=== PATIENT | female | born 1980 ===

== ENCOUNTER 2022-01-29 10:15 | Inpatient (IN) | payer OTHER ==
[~2022-01-29] VITALS: Ht 170.2 cm; Wt 66.7 kg
[2022-01-29] MEDS ORDERED: PROGESTERONE100 MG (12:57)
[2022-02-04] MEDS ORDERED: TANDEM PLUS CA1 EACH PO (07:32)
[2022-02-04] MEDS ORDERED: IBU600 MG PO (07:32)
[2022-02-04] MEDS ORDERED: OXYC1TAB9 PO (07:32)
[2022-02-04] MEDS ORDERED: NEURONTIN300 MG PO (07:32)
[2022-02-04] MEDS ORDERED: PROTONIX40 MG PO (07:34)
== END 2022-02-04 09:52 | disposition home or self-care (01) | DRG 742 ==
LOC: O/R 02-02 07:33 → OB/GYN 02-02 10:15
PROVIDERS: ADMIT Obstetrics & Gynecology Gynecology; ATTEND Obstetrics & Gynecology Gynecology
PROC: 0UT70ZZ Resection of Bilateral Fallopian Tubes, Open Approach (ICD-10-PCS; 2022-02-02)
PROC: 0UT20ZZ Resection of Bilateral Ovaries, Open Approach (ICD-10-PCS; 2022-02-02)
PROC: 0UT90ZZ Resection of Uterus, Open Approach (ICD-10-PCS; principal; 2022-02-02 13:00)
DX: D25.1 Intramural leiomyoma of uterus (principal); D62 Acute posthemorrhagic anemia; D25.2 Subserosal leiomyoma of uterus; Z20.822 Contact with and (suspected) exposure to COVID-19; N72 Inflammatory disease of cervix uteri